=== PATIENT | female | born 1975 | race Hispanic/Latino ===

== ENCOUNTER 2017-05-31 07:19 | Observation (INO) | payer OTHER ==
[~2017-05-31] VITALS: Ht 160 cm; Wt 108.8 kg
[2017-05-31 07:39] LABS: APPEARANCE,URINE TURBID (CLEAR); BILIRUBIN,URINE SMALL (NEGATIVE); COLOR,URINE YELLOW (YELLOW); GLUCOSE, URINE (UA) 250 mg/dL (NEGATIVE); KETONES,URINE 5 mg/dL (NEGATIVE); LEUKOCYTE ESTERASE ,URINE MODERATE (NEGATIVE); NITRATE,URINE POSITIVE (NEGATIVE); OCCULT BLOOD,URINE LARGE (NEGATIVE); PROTEIN,URINE >=300 (NEGATIVE)
[2017-05-31 07:48] LABS: WBC,URINE TNTC /HPF (0-1)
[2017-05-31 07:49] LABS: BACTERIA,URINE Many /HPF (None Seen); SQUAMOUS EPITHELIAL CELL,UR Rare /HPF (0-2)
[2017-05-31] MEDS ORDERED: SODIUM CHLORIDE 0.9% 1000ML 1,000 ML IV ONE ×2 (07:51→08:56)
[2017-05-31] MEDS ORDERED: KETOROLAC TROMETHAMINE 15MG/ML ONE (07:52)
[2017-05-31 08:02] LABS: BASOPHILS % (AUTO) 0.5 % (0.0-5.0); EOSINOPHILS % (AUTO) 0.3 % (0.0-8.0); HEMATOCRIT 37.3 % (36-48); MEAN CORPUSCULAR HEMOGLOBIN 28.6 pg (27.0-33.0); MEAN CORPUSCULAR HGB CONC 34.4 g/dL (32.0-36.0); MEAN CORPUSCULAR VOLUME 83.4 fL (79-99); MONOCYTES % (AUTO) 4.3 % (3.0-13.0); NEUTROPHILS % (AUTO) 87.9 % (40.0-77.0); PLATELET COUNT (AUTO) 314 K/uL (130-400); RED BLOOD CELL COUNT(AUTO) 4.47 MIL/uL (4.00-5.50); RED CELL DISTRIBUTION WIDTH 14.1 % (11.0-15.5); WHITE BLOOD COUNT (AUTO) 17.2 K/uL (4.8-10.8)
[2017-05-31 08:09] LABS: CREATININE 1.1 mg/dL (0.5-1.5); POTASSIUM 3.7 mmol/L (3.5-5.1)
[2017-05-31] MEDS ORDERED: CEFTRIAXONE SODIUM 1 GM ONE (08:56)
[2017-05-31] MEDS ORDERED: INSULIN HUMULIN R 100 UNIT/ML 3ML ONE (08:57)
[2017-05-31 11:40] VITALS: BP 134/77
[2017-05-31] MEDS ORDERED: METF-527 PO (13:17)
[2017-05-31] MEDS ORDERED: VALS1TAB73 PO (13:17)
[2017-05-31] MEDS ORDERED: [UNRECOGNIZED DRUG - OTHER] (13:17)
[2017-05-31] MEDS ORDERED: GLIM4TAB3 PO (13:17)
[2017-05-31] MEDS ORDERED: PRAV20TA4 PO (13:17)
[2017-05-31] MEDS ORDERED: GLUCAGON 1MG KIT 1 MG ML IM PRN (13:30)
[2017-05-31] MEDS ORDERED: DEXTROSE 50%-WATER 50 ML DISP.SYRIN IV PRN (13:30)
[2017-05-31] MEDS ORDERED: MORPHINE SULFATE 4 MG/1ML SYG IVP PRN (13:30)
[2017-05-31] MEDS ORDERED: KETOROLAC TROMETHAMINE 15MG/ML IV PRN (13:30)
[2017-05-31 16:00] VITALS: BP 107/74
[2017-05-31] MEDS: GLIMEPIRIDE 2 MG TABLET PO SCH (16:22)
[2017-05-31] MEDS: METFORMIN HCL 500 MG TAB.SR.24H PO SCH (16:22)
[2017-05-31] MEDS: INSULIN HUMULIN R 100 UNIT/ML 3ML SQ SCH ×2 (16:25→21:34)
[2017-05-31] MEDS ORDERED: PRAVASTATIN 20 MG PO SCH (21:00)
[2017-05-31 21:34] VITALS: BP 157/78
[2017-06-01] VITALS: BP 126/75
[2017-06-01 04:00] VITALS: BP 115/72
[2017-06-01 05:09] LABS: HEMATOCRIT 33.9 % (36-48); MEAN CORPUSCULAR HEMOGLOBIN 29.6 pg (27.0-33.0); MEAN CORPUSCULAR HGB CONC 35.1 g/dL (32.0-36.0); MEAN CORPUSCULAR VOLUME 84.4 fL (79-99); PLATELET COUNT (AUTO) 277 K/uL (130-400); RED BLOOD CELL COUNT(AUTO) 4.02 MIL/uL (4.00-5.50); RED CELL DISTRIBUTION WIDTH 13.7 % (11.0-15.5); WHITE BLOOD COUNT (AUTO) 14.1 K/uL (4.8-10.8)
[2017-06-01 05:23] LABS: CREATININE 0.9 mg/dL (0.5-1.5)
[2017-06-01] MEDS: METFORMIN HCL 500 MG TAB.SR.24H PO SCH (06:11)
[2017-06-01] MEDS: GLIMEPIRIDE 2 MG TABLET PO SCH (06:11)
[2017-06-01] MEDS: INSULIN HUMULIN R 100 UNIT/ML 3ML SQ SCH (06:23)
[2017-06-01 08:00] VITALS: BP 116/71
[2017-06-01] MEDS ORDERED: LOSARTAN/HYDROCHLOROTHIAZIDE 50-12.5MG TABLET PO SCH (09:00)
[2017-06-01] MEDS ORDERED: LEVO500T2 PO (09:45)
[2017-06-01 11:00] VITALS: BP 129/63
== END 2017-06-01 11:30 | disposition home or self-care (01) ==
LOC: EDH 07:19 → EDHIP 10:49 → 3AH 11:48
PROVIDERS: ADMIT Family Medicine; ATTEND Family Medicine
DX: N39.0 Urinary tract infection, site not specified (principal); I10 Essential (primary) hypertension; E11.65 Type 2 diabetes mellitus with hyperglycemia; E78.5 Hyperlipidemia, unspecified; E66.9 Obesity, unspecified; Z90.710 Acquired absence of both cervix and uterus; Z90.49 Acquired absence of other specified parts of digestive tract; Z82.49 Family history of ischemic heart disease and other diseases of the circulatory system
CPT/HCPCS: 36415 ×2; 76770; 80048 ×2; 81001; 82948 ×5; 85025; 85027; 87040 ×2; 87088; 87186; 96372 ×2; 96374; 96375; 99285; G0378 ×25; J0696; J1815 ×4; J1885 ×2; J2270; J7030 ×2